=== PATIENT | male | born 1960 | race Caucasian/White ===

== ENCOUNTER 2017-09-24 23:14 | Emergency (ER) | payer SELFPAY ==
[~2017-09-24] VITALS: Ht 177.8 cm; Wt 90.0 kg
[~2017-09-24 23:14] MED LIST: ABIL5TAB6 PO; SERO400T PO; SULF1SOL4 OD
[2017-09-24 23:55] VITALS: BP 142/66; PULSE 76; RESP 20; TEMP 98.3; O2SAT 99
[2017-09-24] MEDS ORDERED: REME45TA PO (23:59)
[2017-09-24] MEDS ORDERED: METF1000 PO (23:59)
[2017-09-24] MEDS ORDERED: SERO400T PO (23:59)
== END 2017-09-25 01:00 | disposition left against medical advice (07) ==
LOC: NED 23:59
DX: M54.5 Low back pain (principal)
CPT/HCPCS: 99281